=== PATIENT | male | born 1965 | race Caucasian/White ===

== ENCOUNTER 2020-12-19 16:56 | Inpatient (IN) | payer OTHER ==
[2020-12-19 18:39] VITALS: BMI 29.9
[2020-12-19] MEDS ORDERED: ACETAMINOPHEN 325 MG TABLET (FP) PO PRN ×2 (18:48)
[2020-12-19] MEDS ORDERED: MAGNESIUM CITRATE 300 ML BOTTLE PO PRN (18:48)
[2020-12-19] MEDS ORDERED: MENTHOL/PHENOL 1 EACH UD MM PRN (18:48)
[2020-12-19] MEDS ORDERED: IBUPROFEN 400 MG TABLET (FP) PO PRN (18:48)
[2020-12-19] MEDS ORDERED: NICOTINE 10 MG CARTRIDGE (INHALER) IH PRN (18:48)
[2020-12-19] MEDS ORDERED: LORazepam 1 MG TABLET PO PRN (18:48)
[2020-12-19] MEDS ORDERED: MAG HYDROX/AL HYDROX/SIMETH 30 ML UNIT-DOSE CUP PO PRN (18:48)
[2020-12-19] MEDS ORDERED: MAGNESIUM HYDROX 2400MG/30ML ORAL SUSPENSION 30 ML CUP PO PRN (18:48)
[2020-12-19] MEDS: LORazepam 2 MG TABLET PO SCH ×2 (19:57→22:29)
[2020-12-19] MEDS: BISMUTH SUBSALICYLATE 524 MG/30 ML PO PRN (20:30)
[2020-12-19] MEDS: THIAMINE HCL 100 MG TABLET (FP) PO SCH (22:29)
[2020-12-19] MEDS: MELATONIN 5 MG TABLETS PO SCH (22:31)
[2020-12-19] MEDS: hydrOXYzine PAMOATE 25 MG CAPSULE (FP) PO SCH (22:34)
[2020-12-20] MEDS: LORazepam 2 MG TABLET PO SCH ×4 (05:22→22:37)
[2020-12-20] MEDS: hydrOXYzine PAMOATE 25 MG CAPSULE (FP) PO SCH ×5 (05:22→22:37)
[2020-12-20] MEDS: METHOCARBAMOL 500 MG TABLET PO PRN (10:37)
[2020-12-20] MEDS: PANTOPRAZOLE 20 MG TABLET PO SCH (10:37)
[2020-12-20] MEDS: BISMUTH SUBSALICYLATE 524 MG/30 ML PO PRN (10:41)
[2020-12-20] MEDS: PRENATAL VITAMINS W/ FOLIC ACID TABLET (FP) PO SCH (10:41)
[2020-12-20] MEDS: ONDANSETRON *ODT* 4 MG TABLET SL PRN (10:41)
[2020-12-20 11:15] LABS: HEMATOCRIT 43.6 % (35.4-49); HEMOGLOBIN 15.3 GM/dL (11.7-16.9); MCH 32.7 pg (25.7-33.7); MCHC 35.2 g/dl (32.0-35.9); MEAN CELL VOLUME 92.9 fl (80-96); MEAN PLT VOLUME 8.7 fl (7.5-11.1); PLATELET COUNT 147 10^3/uL (134-434); RBC 4.69 M/mm3 (4.00-5.60); RDW 13.6 % (11.9-15.9); WHITE BLOOD COUNT 5.8 K/mm3 (4.0-10.0)
[2020-12-20 11:26] LABS: ALBUMIN 3.5 g/dl (3.4-5.0); BLOOD UREA NITROGEN 13.1 mg/dL (7-18); CALCIUM 8.4 mg/dL (8.5-10.1)
[2020-12-20 11:33] LABS: BILIRUBIN,TOTAL 0.6 mg/dL (0.2-1); TOT PROT 6.4 g/dl (6.4-8.2)
[2020-12-20] MEDS: MELATONIN 5 MG TABLETS PO SCH (22:37)
[2020-12-20] MEDS: THIAMINE HCL 100 MG TABLET (FP) PO SCH (22:37)
[2020-12-21] MEDS: LORazepam 1 MG TABLET PO SCH ×4 (05:49→22:32)
[2020-12-21] MEDS: hydrOXYzine PAMOATE 25 MG CAPSULE (FP) PO SCH ×5 (05:49→23:00)
[2020-12-21] MEDS: PRENATAL VITAMINS W/ FOLIC ACID TABLET (FP) PO SCH (10:02)
[2020-12-21] MEDS: PANTOPRAZOLE 20 MG TABLET PO SCH (10:03)
[2020-12-21] MEDS: ONDANSETRON *ODT* 4 MG TABLET SL PRN (10:04)
[2020-12-21] MEDS: MELATONIN 5 MG TABLETS PO SCH (22:29)
[2020-12-21] MEDS: THIAMINE HCL 100 MG TABLET (FP) PO SCH (22:29)
[2020-12-22] MEDS ORDERED: LORazepam 0.5 MG TABLET PO PRN
[2020-12-22] MEDS: hydrOXYzine PAMOATE 25 MG CAPSULE (FP) PO SCH ×5 (05:39→22:28)
[2020-12-22] MEDS: LORazepam 0.5 MG TABLET PO SCH ×4 (05:40→22:27)
[2020-12-22] MEDS: PRENATAL VITAMINS W/ FOLIC ACID TABLET (FP) PO SCH (10:49)
[2020-12-22] MEDS: PANTOPRAZOLE 20 MG TABLET PO SCH (10:51)
[2020-12-22] MEDS: METHOCARBAMOL 500 MG TABLET PO PRN (22:28)
[2020-12-22] MEDS: THIAMINE HCL 100 MG TABLET (FP) PO SCH (22:28)
[2020-12-22] MEDS: MELATONIN 5 MG TABLETS PO SCH (22:28)
[2020-12-23] MEDS ORDERED: LORazepam 0.5 MG TABLET PO ONE (05:00)
[2020-12-23] MEDS: hydrOXYzine PAMOATE 25 MG CAPSULE (FP) PO SCH ×2 (05:34→10:01)
[2020-12-23] MEDS: PRENATAL VITAMINS W/ FOLIC ACID TABLET (FP) PO SCH (10:01)
[2020-12-23] MEDS: PANTOPRAZOLE 20 MG TABLET PO SCH (10:01)
[2020-12-23] MEDS: METHOCARBAMOL 500 MG TABLET PO PRN (10:02)
[2020-12-23 12:33] VITALS: BP 124/78; PULSE 72; TEMP 97.9
== END 2020-12-23 12:58 | disposition other institution (70) | DRG 774 ==
LOC: YASAS 16:56 → Y6N 19:31
PROVIDERS: ADMIT Allergy & Immunology; ATTEND Allergy & Immunology
PROC: HZ2ZZZZ Detoxification Services for Substance Abuse Treatment (ICD-10-PCS; principal; 2020-12-19)
DX: F10.230 Alcohol dependence with withdrawal, uncomplicated (principal); F14.10 Cocaine abuse, uncomplicated; F17.210 Nicotine dependence, cigarettes, uncomplicated
CPT/HCPCS: 36415; 80053; 85027; 86780; C9803; Q0162; U0003; U0005